=== PATIENT | male | born 1965 | race Caucasian/White ===

== ENCOUNTER 2017-03-12 09:30 | Emergency (ER) | payer OTHER ==
[~2017-03-12] VITALS: Ht 172.7 cm; Wt 173.9 kg
[~2017-03-12 09:30] MED LIST: CEPHALEXIN500 MG PO; CLINDAMYCIN HC300 MG PO; COLACE100 MG PO; LEVAQUIN750 MG PO; MOTRIN800 MG PO; NORCO1 TA1 PO
[2017-03-12 11:39] LABS: BASOPHIL % 0.4 % (0-2); PLATELET COUNT 235 x10^3mcL (130-400)
[2017-03-12 11:40] LABS: UA SPECIFIC GRAVITY >=1.030 (1.005-1.035); microscopic required? YES; urine erythrocyte 2+ (NEGATIVE)
[2017-03-12 11:46] LABS: CARBON DIOXIDE 27.6 mmol/L (21-32); CHLORIDE SERUM 105 mmol/L (98-107); CREATININE SERUM 0.7 mg/dL (0.7-1.3); GFR1 > 60 mL/min; GLUCOSE SERUM 103 mg/dL (74-106); POTASSIUM SERUM 4.3 mmol/L (3.5-5.1); RED CELL DISTRIBUTION WIDTH 14.9 % (11.5-14.5); SODIUM SERUM 139 mmol/L (136-145)
[2017-03-12 11:59] LABS: ALKALINE PHOSPHATASE 86 U/L (46-116); ALT/SGPT 58 U/L (16-63); AST/SGOT 36 U/L (15-37); BILIRUBIN TOTAL 0.58 mg/dL (0.20-1.00); CHOLESTEROL 152 mg/dL (<200); T4(THYROXINE) 5.1 ug/dL (4.7-13.3); TOTAL PROTEIN, SERUM 7.4 g/dL (6.4-8.2)
[2017-03-12 12:03] LABS: ALBUMIN 3.2 g/dL (3.4-5.0)
[2017-03-12 12:44] VITALS: BP 139/74
== END 2017-03-12 12:44 | disposition home or self-care (01) ==
LOC: ED 09:30
PROVIDERS: Emergency Medicine
DX: R60.0 Localized edema (principal); E66.01 Morbid (severe) obesity due to excess calories
CPT/HCPCS: 83880; Q0092